=== PATIENT | male | born 1980 | race Caucasian/White ===

== ENCOUNTER 2018-02-01 16:05 | Emergency (ER) | payer SELFPAY ==
[~2018-02-01] VITALS: Ht 170.2 cm; Wt 75.5 kg
[2018-02-01 16:07] VITALS: BP 120/81
[2018-02-01] MEDS ORDERED: DOXY150T PO (16:18)
== END 2018-02-01 18:25 | disposition left against medical advice (07) ==
LOC: EMS 16:06
DX: R07.9 Chest pain, unspecified (principal); Z53.21 Procedure and treatment not carried out due to patient leaving prior to being seen by health care provider